=== PATIENT | male | born 1955 | race Caucasian/White ===

== ENCOUNTER → 2018-04-24 | Outpatient (CLI) | payer BC ==
--- NOTE | 2018-04-24 09:33 | CARD ---
MR#: [id number] Date of Study: 04/24/2018 Ordering Physician: JAC BROWN, Referring Physician: JAC BROWN, Tech: Ariana Gomez JASON APPROVED REPORT EXAM: Two-dimensional and M-mode echocardiogram with Doppler and color Doppler. Other Information Quality : GoodHR: 70bpm Rhythm : NSR INDICATION Chest Pain 2D DIMENSIONS RVDd3.0 (2.9-3.5cm)Left Atrium(2D)4.6 (1.6-4.0cm) IVSd1.7 (0.7-1.1cm)Aortic Root(2D)3.8 (2.0-3.7cm) LVDd4.4 (3.9-5.9cm)LVOT Diameter2.2 (1.8-2.4cm) PWd1.2 (0.7-1.1cm)LVDs2.3 (2.5-4.0cm) FS (%) 47.0 %SV69.4 ml LVEF(%)78.6 (>50%) M-Mode DIMENSIONS Left Atrium(MM)4.26 (2.5-4.0cm)Aortic Root3.90 (2.2-3.7cm) Aortic Valve AoV Peak Amrik.140.0cm/sAoV VTI27.9cm AO Peak GR.7.8mmHgLVOT Peak Amrik.95.7cm/s AO Mean GR.4mmHgAVA (VMAX)2.67cm2 AI P 1/2 Zyol962cg Mitral Valve MV E Rvuuvqdg80.6cm/sMV E Peak Gr.3mmHg MV DECEL [id number] A Jqzyrtgs66.9cm/s MV E Mean Gr.1mmHgE/A Ratio1.4 MV A Qeziowvt905ob Pulmonary Valve PV Peak Jpzbrjud081.6cm/s Tricuspid Valve TR P. Qaaqrhsv062li/sRAP ATHTCTYS5uoYs TR Peak Gr.83jfWxFBSU04euKm Pulmonary Vein S1 Wocckmcd06.9cm/sD2 Xizefhyc22.6cm/s PVa fubxhqcg898uule LEFT VENTRICLE The left ventricle is normal size. Proximal septal thickening is noted. The left ventricular systolic function is normal. The Ejection Fraction is 65-70%. There is normal LV segmental wall motion. RIGHT VENTRICLE The right ventricle is normal size. There is normal right ventricular wall thickness. The right ventr icular systolic function is normal. ATRIA The left atrium is mildly dilated. The right atrium size is normal. The interatrial septum is intact with no evidence for an atrial septal defect or patent foramen ovale as noted on 2-D or Doppler imagi ng. AORTIC VALVE The aortic valve is thickened but opens well. The aortic valve is trileaflet. Doppler and Color Flow revealed trace aortic regurgitation. There is no significant aortic valvular stenosis. MITRAL VALVE The mitral valve is normal in structure and function. There is no evidence of mitral valve prolapse. There is no mitral valve stenosis. Doppler and Color-flow revealed trace mitral regurgitation. TRICUSPID VALVE The tricuspid valve is normal in structure and function. Doppler and Color Flow revealed trace tricus pid regurgitation. The PA pressure was estimated at 31 mmHg. There is no tricuspid valve prolapse or vegetation. There is no tricuspid valve stenosis. PULMONIC VALVE The pulmonary valve is normal in structure and function. Doppler and Color Flow revealed no pulmonic valvular regurgitation. There is no pulmonic valvular stenosis. GREAT VESSELS The aortic root is mildly enlarged. The ascending aorta is normal in size. PERICARDIAL EFFUSION There is no evidence of significant pericardial effusion. Critical Notification Critical Value: No <Conclusion> The left ventricular systolic function is normal. The Ejection Fraction is 65-70%. There is normal LV segmental wall motion. The left atrium is mildly dilated. Trace mitral regurgitation. Trace tricuspid regurgitation. The PA pressure was estimated at 31 mmHg. There is no evidence of significant pericardial effusion. Signed by : Efrain Hopper, Electronically Approved : 04/24/2018 09:31:38
--- NOTE | 2018-04-25 10:43 | RAD ---
MR#: [id number] Date of Study: 04/25/2018 Ordering Physician: JAC BROWN, Referring Physician: ANGEL ELLIOTT Tech: MAMI Borrero APPROVED REPORT Test Type: Exercise Stress Nurse/Tech: Eleni Walker R.N. Test Indications: stypical chest pain Cardiac History: Family history, Hypertension,, High cholesterol Medications: See Electronic Medical Record Medical History: See Electronic Medical Record Resting ECG: NSR Resting Heart Rate: 70 bpm Resting Blood Pressure: 140/67mmHg Pretest Chest Pain: No chest pain Nurse/Tech Notes S1S2, lungs sound clear Consent: The procedure was explained to the patient in lay terms. Informed consent was witnessed. Jose eout was entered into [employer]. History and Stress Test performed by Eleni Walker R.N. Stress Symptoms Dyspnea POST EXERCISE Reason for Termination: Reached target heart rate Target HR: 133 Max HR: 136 bpm Exercise duration: 8 min 45 sec min:sec, 3 Stage Max Blood Pressure: 184/90mmHg Blood Pressure response to exercise: Normal blood pressure response during stress. Chest Pain: No. Arrhythmia: Yes. occ PVC ST Change: No. INTERPRETATION Stress EKG Conclusion: Baseline EKG showed sinus rhythm. No ischemic changes at peak stress. No arr hythmias. Imaging Protocol IMAGE PROTOCOL: Rest Tc-99m/stress Tc-99m 2 days Rest: Stress: Viability: Radiopharm.Tc99m LcyrqnbicPq69y Sestamibi Llpj14sQl 33.7mCi Duration 15min. 15min. Img Date 04/24/2018 04/25/2018 Inj-Img Tvos07kxp. 60min. Rest Admin Site:IV - Right AntecubitalAdministrator:NAREN Kothari, ARRT (R)(N) Stress Admin Site: IV - Left AntecubitalAdministrator: MAMI Borrero STRESS DATA End Diast. Vol.95.0mlLVEDV index BSA43.0ml End Syst. Vol.33.0mlLVESV index BSA15.0ml Myocardial Iixs162.0gEject. Cqcvlvlt74.0% Stress Scores Regional WT1.00Summed WT18.00 Regional WM0.00Summed WM0.00 Study quality was good. Left Ventricular size was Normal at Rest and Stress. Lung uptake was . Left Ventricular ejection fraction is 65%. The rest and stress images show normal perfusion, normal contraction and thickening. LV Perf. Quant 17 Seg. SSS1.00 17 Seg. SRS1.00 17 Seg. SDS0.00 Stress Defect Extent (% LAD)0.00Rest Defect Extent (% LAD)0.00Rev. Defect Extent (% LAD)0.00 Stress Defect Extent (% LCX) 5.00Rest Defect Extent (% LCX)5.00Rev. Defect Extent (% LCX)2.50 Stress Defect Extent (% RCA)0.00Rest Defect Extent (% RCA)0.00Rev. Defect Extent (% RCA)0.00 Stress Defect Extent (% ANNA)0.90Rest Defect Extent (% ANNA)0.90Rev. Defect Extent (% ANNA)0.40 Conclusion 1. Treadmill exercise cardioisotope stress test did not show any evidence of ischemia or infarct. 2. Normal left ventricular systolic function with ejection fraction calculated at 65%. 3. Patient had good activity tolerance. Low risk for cardiac events. Signed by : Efrain Hopper, Electronically Approved : 04/25/2018 10:42:08
== END | disposition home or self-care (01) ==
LOC: ECHO 07:40
PROVIDERS: ATTEND Internal Medicine Cardiovascular Disease
DX: R07.89 Other chest pain (principal); Z82.49 Family history of ischemic heart disease and other diseases of the circulatory system; Z83.42 Family history of familial hypercholesterolemia
CPT/HCPCS: 78452; 93306; 96374; A9500; 93017